=== PATIENT | male | born 1990 | race Caucasian/White ===

== ENCOUNTER 2023-03-17 11:20 | Emergency (ER) | payer MEDICAID ==
[~2023-03-17] VITALS: Ht 182.9 cm; Wt 86.2 kg
[2023-03-17 11:24] VITALS: BP_SYST 132; PULSE 104; RESP 19; TEMP 98; O2SAT 97
[2023-03-17 11:48] LABS: BASOPHILS # (AUTO) 0.1 K/uL (0.0-0.2); EOSINOPHILS # (AUTO) 0.1 K/uL (0.0-0.4); EOSINOPHILS % (AUTO) 1.3 % (0.0-4.0); HEMOGLOBIN 13.3 g/dL (14.0-18.0); LYMPHOCYTES # (AUTO) 2.9 K/uL (1.0-5.5); MEAN CORPUSCULAR HEMOGLOBIN 29 pg (27-31); MEAN CORPUSCULAR HGB CONC 33 % (32-36); MEAN CORPUSCULAR VOLUME 87 fL (79.0-98.0); MONOCYTES # (AUTO) 0.6 K/uL (0.0-1.0); MONOCYTES % (AUTO) 7.8 % (1.7-9.3); NEUTROPHILS # (AUTO) 4.3 K/uL (1.8-7.7); NEUTROPHILS % (AUTO) 53.9 % (40.0-70.0); PLATELET COUNT (AUTO) 224 K/uL (130-430); RED CELL DISTRIBUTION WIDTH 13.4 % (9.0-15.0)
[2023-03-17 11:59] LABS: ANION GAP 9 (5-15); CALCIUM 8.7 mg/dL (8.4-11.0); CHLORIDE 102 mmol/L (98-107); CREATININE 0.97 mg/dL (0.55-1.30); GFR AFRICAN AMERICAN 116 mL/min (>90); GLUCOSE 98 mg/dL (70-99); UREA NITROGEN, BLOOD 16 mg/dL (8-21)
[2023-03-17 12:06] LABS: ALANINE AMINOTRANSFERASE 53 U/L (12-78); ALBUMIN 3.8 g/dL (3.4-4.8); ASPARTATE AMINOTRANSFERASE 46 U/L (10-37); TOTAL BILIRUBIN 0.3 mg/dL (0.0-1.0)
[2023-03-17] MEDS ORDERED: IBUP-1971 PO (12:45)
== END 2023-03-17 13:10 ==
LOC: SED 11:20
DX: R55 Syncope and collapse (principal); R07.89 Other chest pain; V89.2XXA Person injured in unspecified motor-vehicle accident, traffic, initial encounter; Y93.89 Activity, other specified; Y92.89 Other specified places as the place of occurrence of the external cause; Y99.8 Other external cause status
CPT/HCPCS: 99285; 70450; 71045; 80053; 85025; 84484; 36415; 93005; 72040; 76376; 83605; G0482